=== PATIENT | female | born 1985 | race Caucasian/White ===

== ENCOUNTER 2016-04-02 07:57 | Emergency (ER) | payer SELFPAY ==
[~2016-04-02] VITALS: Ht 170.2 cm; Wt 95.0 kg
[2016-04-02 08:00] VITALS: Ht 170.2 cm; Wt 95.0 kg
== END 2016-04-02 08:45 | disposition left against medical advice (07) ==
LOC: FTE 07:57
DX: Z53.21 Procedure and treatment not carried out due to patient leaving prior to being seen by health care provider (principal)